=== PATIENT | male | born 1950 | race Caucasian/White ===

== ENCOUNTER → 2016-05-28 | Outpatient (CLI) | payer MEDICARE, BC ==
[~2016-05-28] MED LIST: CEPHALEXIN500 MG PO; COZAAR100 MG PO; DOXYCYCLINE 10100 MG PO; FISH OIL CONC1000 MG PO; FLUCONAZOLE 40 MG/ML PO; FORTAMET1000 MG PO; GLIPIZIDE10 MG PO; GLUCOPHAGE1000 MG PO; GLUCOTROL 5M5 MG/TAB PO; HCTZ 25MG25 MG PO; HCTZ12.5TAB PO; HYDROCODONE BIT1 TA3 PO; LIPITOR20 MG PO; LISINOPRIL20 MG PO; LOPID600 MG PO; LORTAB 5/500 501 TAB PO; MASON NATURAL1200 MG PO; MOBIC15 MG PO; NEURONTIN300 MG/CAP PO; NORVASC 5MG5 MG/TAB PO; PRILOSEC 20MG20 MG PO; PROTONIX 40MG T40 MG PO; ROXICODONE15 MG PO; ROXICODONE30 MG PO; SIMVASTATIN10 MG PO; TRILIPIX PO; [UNRECOGNIZED DRUG - OTHER] PO
== END ==
LOC: COL.RAD 14:11
DX: Z01.818 Encounter for other preprocedural examination (principal); M43.27 Fusion of spine, lumbosacral region; M47.894 Other spondylosis, thoracic region; M54.5 Low back pain; I10 Essential (primary) hypertension

== ENCOUNTER → 2018-10-24 | Emergency (ER) | payer MEDICARE, BC ==
[~2018-10-24] VITALS: Ht 182.9 cm; Wt 97.7 kg
[~2018-10-24] MED LIST changes: +BACTRIM DS 8001 TAB PO; +CALCIUM CARBON650 M2; +DIFLUCAN150 MG PO; +FERRO-TIME325 MG PO; +HUMULIN 70/30 PE3 ML SQ; +IMBRUVICA PO; +MAGNESIUM ELEME30 MG; +NORVASC 10MG10 MG PO; +NOVOLOG FLEX100 U/ML SQ; +PREDNISONE10 MG PO; +SODIUM CHLORIDE1 GM; +THERMOTABS 2871 TA1 PO; +ZOVIRAX400 MG PO
[2018-10-24 10:14] VITALS: TEMP 98.2
[2018-10-24 11:45] LABS: ALBUMIN 3.3 gm/dL (3.5-5.0); BILIRUBIN,TOTAL 0.4 mg/dL (0.0-1.0); CALCIUM 8.8 mg/dL (8.4-10.2); CREATININE, serum 0.77 (0.66-1.25); POTASSIUM 4.4 mmol/L (3.4-5.0); TOTAL PROTEIN 5.7 gm/dL (6.4-8.2)
[2018-10-24 11:46] LABS: BASO % 0.1 % (0.0-2.0); EOS % 0.3 % (0-4.0); GRAN # 5.4 (1.4-6.5); GRAN % 75.4 % (42.2-75.2); HEMOGLOBIN 12.3 g/dl (13.5-18.0); LYMPH # 0.9 (1.2-3.4); LYMPH % 11.8 % (20.0-51.0); MEAN CELL VOLUME 90 fl (80.0-100.0); MEAN CORPUSCULAR HEMOGLOBIN 30 pg (27.0-31.0); MEAN CORPUSCULAR HGB CONC 34 g/dl (33.0-37.0); MEAN PLATELET VOLUME 9.9 fl (7.4-10.4); MONO # 0.8 (0.1-0.6); MONO % 11.4 % (1.7-9.3); PLATELET COUNT 158 K/mm3 (130-400); RED BLOOD COUNT 4.05 M/mm3 (4.20-5.60); REDCELL DISTRIBUTION WIDTH-CV 15.3 % (11.5-14.5)
[2018-10-24 11:47] LABS: HEMATOCRIT 36.5 % (42.0-52.0)
[2018-10-24 16:02] VITALS: BP 115/64; PULSE 55
== END ==
LOC: COL.ER 10:12
PROVIDERS: Emergency Medicine
DX: S52.121A Displaced fracture of head of right radius, initial encounter for closed fracture (principal); Z79.84 Long term (current) use of oral hypoglycemic drugs; W19.XXXA Unspecified fall, initial encounter; Y92.410 Unspecified street and highway as the place of occurrence of the external cause
CPT/HCPCS: J2405; J3010; Q4050

== ENCOUNTER 2018-11-08 00:24 | Emergency (ER) | payer MEDICARE, BC ==
[~2018-11-08] VITALS: Ht 182.9 cm; Wt 95.5 kg
[2018-11-08 00:34] VITALS: BP 100/70; TEMP 97.4
[2018-11-08] MEDS ORDERED: CRESEMBA186 MG PO (00:40)
[2018-11-08 00:53] LABS: BASO % 0.2 % (0.0-2.0); EOS % 0.2 % (0-4.0); GRAN # 10.4 (1.4-6.5); GRAN % 79.5 % (42.2-75.2); HEMATOCRIT 37.7 % (42.0-52.0); HEMOGLOBIN 12.7 g/dl (13.5-18.0); LYMPH # 1.9 (1.2-3.4); LYMPH % 14.4 % (20.0-51.0); MEAN CELL VOLUME 90 fl (80.0-100.0); MEAN CORPUSCULAR HEMOGLOBIN 30 pg (27.0-31.0); MEAN CORPUSCULAR HGB CONC 34 g/dl (33.0-37.0); MEAN PLATELET VOLUME 9.4 fl (7.4-10.4); MONO # 0.7 (0.1-0.6); PLATELET COUNT 267 K/mm3 (130-400); RED BLOOD COUNT 4.19 M/mm3 (4.20-5.60); REDCELL DISTRIBUTION WIDTH-CV 15.2 % (11.5-14.5)
[2018-11-08 00:57] LABS: INR 0.8 (0.8-3.0); PROTHROMBIN TIME 9.7 SECONDS (9.7-12.8)
[2018-11-08 00:59] LABS: PARTIAL THROMBOPLASTIN TIME 26.8 SECONDS (26.0-37.0)
[2018-11-08 01:03] LABS: ALANINE AMINOTRANSFERASE 13 U/L (21-72); ALBUMIN 4.1 gm/dL (3.5-5.0); ALKALINE PHOSPHATASE 134 U/L (50-136); ANION GAP 12 mmol/L (7-16); AST,SGOT 50 U/L (15-37); BILIRUBIN,TOTAL 0.5 mg/dL (0.0-1.0); BLOOD UREA NITROGEN 18 mg/dL (9-20); CALCIUM 9.6 mg/dL (8.4-10.2); CARBON DIOXIDE 27 mmol/L (22-30); CHLORIDE 92 mmol/L (98-107); CREATININE, serum 0.72 (0.66-1.25); GLUCOSE 124 mg/dL (74-106); LIPASE 68 U/L (23-300); MAGNESIUM 1.8 mg/dL (1.6-2.3); PHOSPHOROUS 2.9 mg/dL (2.5-4.5); POTASSIUM 3.7 mmol/L (3.4-5.0); SODIUM 132 mmol/L (137-145); TOTAL PROTEIN 7.1 gm/dL (6.4-8.2)
[2018-11-08 01:14] LABS: TROPONIN-I < 0.012 ng/mL (0.000-0.035)
[2018-11-08 04:21] LABS: COLLECTION METHOD CLEAN CATCH
[2018-11-08 04:26] LABS: PH 7 (5-8); SQUAMOUS EPITHELIAL None Seen /hpf; URINE APPEARANCE Clear; URINE BACTERIA None Seen /hpf; URINE BILIRUBIN Negative (NEGATIVE); URINE BLOOD Negative (NEGATIVE); URINE COLOR Yellow; URINE GLUCOSE Negative (NEGATIVE); URINE KETONE Negative (NEGATIVE); URINE LEUKOCYTE ESTERASE Negative (NEGATIVE); URINE NITRATE Negative (NEGATIVE); URINE PROTEIN(semi-quant) 1+ (NEGATIVE); URINE RBC 0-2 /hpf; URINE UROBILINOGEN Negative (NEGATIVE)
[2018-11-08] MEDS ORDERED: ZOFRAN ODT4 MG PO (05:17)
[2018-11-08 05:47] VITALS: PULSE 86
== END 2018-11-08 05:30 | disposition home or self-care (01) ==
LOC: COL.ER 00:24
PROVIDERS: Emergency Medicine
DX: R11.2 Nausea with vomiting, unspecified (principal); R53.1 Weakness; E11.9 Type 2 diabetes mellitus without complications; Z98.890 Other specified postprocedural states; Z79.4 Long term (current) use of insulin
CPT/HCPCS: J2405; J7030; Q9967

== ENCOUNTER 2019-08-09 14:06 | Inpatient (IN) | payer MEDICARE, BC ==
[~2019-08-09] VITALS: Ht 182.9 cm; Wt 102.2 kg
[~2019-08-09 14:06] MED LIST changes: +CRESEMBA186 MG PO; -MAGNESIUM ELEME30 MG; +MAGNESIUM ELEME30 MG PO; +ZOFRAN ODT4 MG PO
[2019-11-01] VITALS (7 sets, daily range): BP systolic 130–155; BP diastolic 61–70; PULSE 70–81; TEMP 98.3–98.9
[2019-11-01] MEDS ORDERED: ZOVIRAX800 MG PO (10:09)
[2019-11-01] MEDS ORDERED: GLUCOTROL 5M5 MG/TAB PO (10:11)
[2019-11-01] MEDS ORDERED: VITAMIND3 5000 PO (10:12)
[2019-11-01] MEDS ORDERED: ROXICODONE 55 MG/TAB PO (10:13)
[2019-11-01] MEDS ORDERED: CALCIUM 600/VIT1 CA1 PO (10:15)
--- NOTE | 2019-11-01 17:40 | NUR ---
PATIENT BACK IN ROOM 332 POST OP. A&O. VSS. PATIENT HAD PAIN ISSUES IN PACU WHICH HE REPORTS IN BETTER NOW. PATIENT HAS CHRONIC PAIN ISSUES. LTK DRESSING IS CD&I WITH AQUACEL, CRYOCUFF AND IROM BRACE INPLACE. TEDS & SCD'S TO BLE. POSITIVE PEDAL PULSES. GARZA TO DD. IV FLUIDS INFUSING VIA PUMP. NO C/O N/V. LIQUIDS AT BEDSIDE. BS IS 131. HEAD TO TOE ASSESSMENT WNL. AT BEDSIDE. ORIENTED TO ROOM. CALL LIGHT IN REACH.
--- NOTE | 2019-11-01 20:25 | NUR ---
Pt. sitting up in chair at this time. Pt. is A&OX3, assessment complete. IV to lt. hand, IV fluids infusing per orders. Aquacell dressing to lt. knee, CDI, brace on lt. leg. Pt. reports pain to lt. knee at a 8 on pain scale, will give pain meds per orders. Pt. denies further needs, call light within reach.
[2019-11-02] VITALS (7 sets, daily range): BP systolic 153–173; BP diastolic 64–76; PULSE 74–105; TEMP 97.9–99.1
[2019-11-02 06:59] LABS: HEMOGLOBIN 11.9 g/dl (13.5-18.0)
[2019-11-02 07:03] LABS: HEMATOCRIT 34.3 % (42.0-52.0)
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
--- NOTE | 2019-11-02 13:50 | NUR ---
MARKOS met with the patient and the patient's , Olimpia (ph#[phone]), to discuss discharge plan. The patient lives in [place] with his . He reports independence with ADLs and has a cane and walker. The patient's PCP is Dr. Hanane Lobato and he receives his medications at [facility]. He reports no difficulties obtaining his meds. The patient does not have advanced directives in EMR, but he reports that he does have them completed and that his is his DPOA-HC. The patient plans to return home with his and receive outpatient PT at [facility] upon discharge. No additional needs at this time.
--- NOTE | 2019-11-02 20:00 | NUR ---
Report recieved, assumed care for night clerk auditor. A&O-periods of confused. Couldnt remember where he was or why. Has urinated in a basin stating "I peed in the trash can." Denies nausea/shortness of breath. INT to left wrist flushes without difficulty. Dressing to left [id number]. TEDs/SCDs bilat. Cryocuff in place-filled with new ice. Denies current needs. Call light in reach. Will monitor.
--- NOTE | 2019-11-02 21:30 | NUR ---
Called c/o pain to left knee/back-rating 8/10 on pain scaled-described as ache/throb/sharpness. Requesting 35mg of oxycodone-was given at 1650. Hydrocodone given instead per dr order. Will monitor.
--- NOTE | 2019-11-02 21:40 | NUR ---
Called CHAN Oconnell-extension service specialist in charge for ortho-for clarification of Oxycodone order. New orders received and initiated for 35mg oxycodone TID-as stated in progress note. Discussed with patient who is still confused. Bed alarm is on.
--- NOTE | 2019-11-03 03:31 | NUR ---
Has remained confused off and on this shift thinking he is in a hotel. Has received hydrocodone per dr order x1 as well as scheduled oxycodone per dr order. Rates pain /10-will call for pain medications but be sleeping when taken to room. Has denied nausea/shortness of breath. VS remained stable. SCDs/TEDs bilat. Brace/cryocuff in place. Call light within reach/bed alarm on. Will monitor.
[2019-11-03 04:19] VITALS: BP 150/66; PULSE 86; TEMP 99
--- NOTE | 2019-11-03 07:02 | NUR ---
REPORT FROM JUANITO PEDERSEN.
[2019-11-03 07:35] VITALS: BP 154/64; PULSE 80; TEMP 98.8
[2019-11-03 07:35] LABS: POTASSIUM 3.8 mmol/L (3.4-5.0)
[2019-11-03] MEDS ORDERED: NORCO 325 MG-7.1 TAB PO (07:48)
[2019-11-03] MEDS ORDERED: ASPI325T6 PO (07:48)
--- NOTE | 2019-11-03 10:51 | NUR ---
PT UP TO SHOWER WITH OT. GAUZE REMOVED FROM KNEE. DRESSING CDI, PAIN TOLERABLE WITH PO PAIN MEDICATIONS.
--- NOTE | 2019-11-03 13:55 | NUR ---
DISCHARGE INSTRUCTIONS REVIEWED WITH PATIENT, QUESTIONS SOLICITED AND ANSWERED. PT TAKEN TO FRONT BY WHEEL CHAIR.
== END 2019-11-03 13:56 | disposition home or self-care (01) | DRG 470 ==
LOC: JCC 09-26 07:30
PROVIDERS: ADMIT Orthopaedic Surgery
PROC: 0SRD0J9 Replacement of Left Knee Joint with Synthetic Substitute, Cemented, Open Approach (ICD-10-PCS; principal; 2019-11-01 16:30)
DX: M17.12 Unilateral primary osteoarthritis, left knee (principal); Z94.81 Bone marrow transplant status; C92.01 Acute myeloblastic leukemia, in remission; G89.29 Other chronic pain; M54.9 Dorsalgia, unspecified; E11.9 Type 2 diabetes mellitus without complications; K21.9 Gastro-esophageal reflux disease without esophagitis; I10 Essential (primary) hypertension; E78.00 Pure hypercholesterolemia, unspecified; Z90.49 Acquired absence of other specified parts of digestive tract; Z85.828 Personal history of other malignant neoplasm of skin; Z87.891 Personal history of nicotine dependence
CPT/HCPCS: A4314; A9284; C1713; C1776; J0690; J1170; J1885; J2250; J2270; J2405; J2704; J3010; J7030; L1832

== ENCOUNTER → 2019-08-15 | Outpatient (CLI) | payer MEDICARE, BC ==
[~2019-08-15] MED LIST changes: +MAGNESIUM ELEME30 MG; -MAGNESIUM ELEME30 MG PO
== END ==
LOC: COL.RAD 13:00
DX: M19.011 Primary osteoarthritis, right shoulder (principal)
CPT/HCPCS: J3301; Q9967

== ENCOUNTER → 2019-12-22 | Outpatient (CLI) | payer MEDICARE, BC ==
[~2019-12-22] MED LIST changes: +ASPI325T6 PO; +CALCIUM 600/VIT1 CA1 PO; -MAGNESIUM ELEME30 MG; +MAGNESIUM ELEME30 MG PO; +NORCO 325 MG-7.1 TAB PO; +ROXICODONE 55 MG/TAB PO; +VITAMIND3 5000 PO; +ZOVIRAX800 MG PO
== END ==
LOC: COL.RAD 12:59
DX: M25.511 Pain in right shoulder (principal)
CPT/HCPCS: J3301; Q9967

== ENCOUNTER → 2020-05-02 | Outpatient (CLI) | payer MEDICARE, BC | LOC: COL.RAD 10:13 | DX: M19.011 Primary osteoarthritis, right shoulder (principal) | CPT/HCPCS: J3301; Q9967 ==

== ENCOUNTER 2020-10-19 14:45 | Outpatient (RCR) | payer MEDICARE, BC | END 2020-10-22 | disposition home or self-care (01) | LOC: WSC | DX: M17.11 Unilateral primary osteoarthritis, right knee (principal); Z96.651 Presence of right artificial knee joint ==

== ENCOUNTER → 2021-02-15 | Outpatient (CLI) | payer MEDICARE, BC | LOC: COL.RAD 08:45 | DX: M19.011 Primary osteoarthritis, right shoulder (principal) | CPT/HCPCS: J3301; Q9967 ==

== ENCOUNTER → 2021-05-08 | Outpatient (CLI) | payer MEDICARE, BC | LOC: COL.RAD 12:35 | DX: M19.011 Primary osteoarthritis, right shoulder (principal) | CPT/HCPCS: J3301; Q9967 ==

== ENCOUNTER → 2021-08-08 | Outpatient (CLI) | payer MEDICARE, BC | LOC: COL.RAD 10:04 | DX: M19.011 Primary osteoarthritis, right shoulder (principal) | CPT/HCPCS: J3301; Q9967 ==

== ENCOUNTER → 2023-03-12 | Outpatient (CLI) | payer MEDICARE, BC | LOC: MHCPAIN 13:45 | DX: M21.372 Foot drop, left foot (principal); M96.1 Postlaminectomy syndrome, not elsewhere classified; G64 Other disorders of peripheral nervous system; M21.371 Foot drop, right foot | CPT/HCPCS: G0463 ==

== ENCOUNTER → 2023-06-04 | Outpatient (CLI) | payer MEDICARE, BC | LOC: MHCPAIN 13:29 | DX: M53.3 Sacrococcygeal disorders, not elsewhere classified (principal); M96.1 Postlaminectomy syndrome, not elsewhere classified; R69 Illness, unspecified; M21.371 Foot drop, right foot; M21.372 Foot drop, left foot; G64 Other disorders of peripheral nervous system | CPT/HCPCS: G0463 ==

== ENCOUNTER → 2023-07-15 | Outpatient (CLI) | payer MEDICARE, BC | LOC: MHCPAIN 13:10 | DX: M96.1 Postlaminectomy syndrome, not elsewhere classified (principal); M54.16 Radiculopathy, lumbar region | CPT/HCPCS: G0463 ==

== ENCOUNTER → 2023-07-30 | Outpatient (CLI) | payer MEDICARE, BC | LOC: MHCPAIN 14:01 | DX: M96.1 Postlaminectomy syndrome, not elsewhere classified (principal); M51.36 Other intervertebral disc degeneration, lumbar region; G64 Other disorders of peripheral nervous system; M21.371 Foot drop, right foot | CPT/HCPCS: G0463 ==

== ENCOUNTER → 2023-11-04 | Outpatient (CLI) | payer MEDICARE, BC | LOC: MHCPAIN 14:07 | DX: M96.1 Postlaminectomy syndrome, not elsewhere classified (principal); M51.36 Other intervertebral disc degeneration, lumbar region; G64 Other disorders of peripheral nervous system; M21.371 Foot drop, right foot; M21.372 Foot drop, left foot | CPT/HCPCS: G0463 ==

== ENCOUNTER → 2024-02-01 | Outpatient (CLI) | payer MEDICARE, BC | LOC: MHCPAIN 14:03 | DX: M51.36 Other intervertebral disc degeneration, lumbar region (principal); G64 Other disorders of peripheral nervous system; M21.371 Foot drop, right foot; M96.1 Postlaminectomy syndrome, not elsewhere classified; M21.372 Foot drop, left foot | CPT/HCPCS: G0463 ==

== ENCOUNTER 2024-02-19 13:00 | Outpatient (RCR) | payer MEDICARE, BC | END 2024-02-22 | disposition home or self-care (01) | LOC: PT.GENESIS | DX: G64 Other disorders of peripheral nervous system (principal) ==

== ENCOUNTER → 2024-03-14 | Outpatient (CLI) | payer MEDICARE, BC ==
[~2024-03-14] VITALS: Ht 182.9 cm; Wt 103.2 kg
[~2024-03-14] MED LIST changes: +ALPHA LIPOIC A600 M1 PO; +CALCIUM 600-D 61 TAB PO; +CELEBREX 200MG200 MG PO; +EPA FISH OIL1 SGL PO; +Gadoterate 20 ML VIAL IV ONE; +IRON 27 MG PO; +JARDIANCE10; +LASIX 20MG TABL20 MG PO; +LR 1,000 ML IV SCH; +Lidocaine PF 2% (20 MG/ML) 5 ML VIAL ONE; +MAGNESIUM200 MG PO; +Midazolam 2 MG/2 ML VIAL ONE; +OXYCONTIN60 MG PO; +PAMELOR75 MG PO; +PRINIVIL5 MG PO; +VITAMIN D31000 IU PO
[2024-03-14 08:15] VITALS: BP 137/76; PULSE 81; TEMP 97.1
--- NOTE | 2024-03-14 09:02 | NUR ---
0847--BG 147. ANESTHESIA EMBEDDED NURSE AWARE AND IS FINE WITH THIS.
[2024-03-14 10:18] VITALS: BP 136/82; PULSE 91
[2024-03-14 10:33] VITALS: BP 136/80; PULSE 75
[2024-03-14 10:48] VITALS: BP 133/78; PULSE 69
[2024-03-14 11:03] VITALS: BP 151/84; PULSE 70
--- NOTE | 2024-03-14 12:09 | NUR ---
1110--PATIENT HAS COMPLETED HIS RECOVERY. PATIENT IS AWAKE AND ALERT. IV REMOVED. PATIENT HAS ALL PAPERWORK AND PERSONAL ITEMS. PATIENT ESCORTED DOWN TO PATIENT ENTRANCE VIA WHEELCHAIR WITH ALL PERSONAL ITEMS. PATIENT ABLE TO GET INTO THE FRONT PASSENGER SEAT OF HIS RIDE WITHOUT ANY HELP. ALL NEEDS MET.
== END ==
LOC: COL.RAD 07:30
DX: M48.061 Spinal stenosis, lumbar region without neurogenic claudication (principal); M96.1 Postlaminectomy syndrome, not elsewhere classified; Z98.1 Arthrodesis status; Z98.890 Other specified postprocedural states
CPT/HCPCS: A9575; J2250; J2704; J7120

== ENCOUNTER 2024-03-23 13:00 | Outpatient (RCR) | payer MEDICARE, BC ==
[~2024-03-23 13:00] MED LIST changes: -Gadoterate 20 ML VIAL IV ONE; -LR 1,000 ML IV SCH; -Lidocaine PF 2% (20 MG/ML) 5 ML VIAL ONE; -Midazolam 2 MG/2 ML VIAL ONE
== END 2024-03-24 | disposition home or self-care (01) ==
LOC: PT.GENESIS
DX: G64 Other disorders of peripheral nervous system (principal)

== ENCOUNTER 2024-04-04 07:57 | Outpatient (RCR) | payer MEDICARE, BC | END 2024-04-23 | disposition home or self-care (01) | LOC: WSST | DX: R13.13 Dysphagia, pharyngeal phase (principal) ==